=== PATIENT | male | born 1970 | race Caucasian/White ===

== ENCOUNTER 2022-06-29 02:09 | Emergency (ER) | payer MEDICAID ==
[~2022-06-29] VITALS: Ht 165.1 cm; Wt 59.0 kg
--- NOTE | 2022-06-29 02:30 | NUR ---
Dr. Campoverde at bedside for MSE.
[2022-06-29] MEDS ORDERED: MUPI22OI2 TP (03:15)
[2022-06-29] MEDS ORDERED: TRIA15CR2 TP (03:15)
--- NOTE | 2022-06-29 03:21 | NUR ---
Patient given written and verbal discharge instructions. Patient verbalizes understanding of instructions. Patient is ambulatory with steady gait. Refuses offer of custodial placement. Patient given list of available shelters in surrounding area. Pt out of ER with steady gait, no acute signs of distress, VSS, all belongings taken.
[2022-06-29 03:23] VITALS: BP 123/79
== END 2022-06-29 03:23 | disposition home or self-care (01) ==
LOC: ER 02:09
DX: L01.00 Impetigo, unspecified (principal); F17.210 Nicotine dependence, cigarettes, uncomplicated; Z59.00 Homelessness unspecified; F15.10 Other stimulant abuse, uncomplicated
CPT/HCPCS: A4663